=== PATIENT | male | born 1940 | race Caucasian/White ===

== ENCOUNTER 2017-03-13 14:42 | Emergency (ER) | payer OTHER ==
[2017-03-13 14:48] VITALS: BP 135/79; BMI 29.8
--- NOTE | 2017-03-13 15:15 | DR.GENAD ---
HPI - PCP Primary Care Physician: ID ( DR. ANNE) - Complaint/Symptoms Chief Complaint:: PATIENT STATED THAT HE HAS BEEN HAVING A HIGH HEART RATE. HE STATED THAT IT HAS BEEN RUNNING BETWEEN 140-144 BPM. - Nurses notes reviewed Nurses Notes Review: Yes - Source History Provided: Patient - Mode of Arrival Mode of Arrival: Ambulatory - Timing Onset of Chief Complaint: 03/10/17 Came on: Suddenly - Duration Duration: Constant Duration: Days - Severity Severity: Moderate PMH - PMH Past Medical History: Yes Past Medical History: CVA, Hypertension Past Surgical History: Yes Past Surgical History Comment: HERNIA - Family History History of Family Medical Conditions: Yes Family Medical History: Cancer, [place], Coronary Artery Disease - Social History Does patient currently use any type of tobacco product: No Have you used tobacco products in the last 12 months: No Type of Tobacco Use: None Does any household member use tobacco: No Alcohol Use: Occasionally Lives With: Family Lives Where: Home - infectious screening In the last 2 months have you had wt loss of >10#?: NO Have you had fever, night sweats or hemotysis?: No Have you traveled outside the country in the last 6 months?: No Isolation: Standard ROS - Review of Systems Constitutional: No Symptoms Reported Eyes: No Symptoms Reported ENTM: No Symptoms Reported Respiratoy: No Symptoms Reported Cardiovascular: Chest Pain, Palpitations Gastrointestinal/Abdominal: No Symptoms Reported Genitourinary: No Symptoms Reported Neurological: No Symptoms Reported Musculoskeletal: No Symptoms Reported Integumentary: No Symptoms Reported Hematologic/Lymphatic: No Symptoms Reported Endocrine: No Symptoms Reported All Other Systems: Reviewed and Negative PE - Vital Signs Vitals: Temperature 98.2 F Pulse Rate [Left Brachial] 110 Pulse Rate 122 Respiratory Rate 20 Blood Pressure 135/79 O2 Sat by Pulse Oximetry 97 - General Limitations: No Limitations General Appearance: Alert - Head Head Exam: Normal Inspection - Eyes Eye exam: Normal Appearance - ENT ENT Exam: Normal External Ear Exam TM/Canal Exam: Bilateral Normal Nose Exam: Normal Nose Exam Mouth Exam: Normal Inspection Throat Exam: Normal Inspection - Neck Neck Exam: Normal Inspection - Chest Chest Inspection: Symmetric Chest Wall Rise - Respiratory Respiratory Exam: Normal Lung Sounds Bilat Respiratory Exam: Bilateral Clear to Auscultation - Cardiovascular Cardiovascular Exam: Tachycardia, Irregular Rhythm - Abdominal Exam Abdominal Exam: Normal Bowel Sounds, Soft. negative: Tenderness - Extremities Extremities Exam: Normal Inspection - Back Back Exam: Normal Inspection - Neurologic Neurological Exam: Alert, Oriented X3 - Psychiatric Psychiatric Exam: Normal Affect, Normal Mood - Skin Skin Exam: Normal Color MDM - Additional Information Additional Information Obtained From: Family - Differential Diagnosis Differential Diagnosis: PALPITATION, CHEST DISCOMFORT Course - Treatment Treatment: SEE ORDERS. - Education/Counseling Education/Counseling: Patient, Family, Education Educated On: Diagnosis, Needs for Follow Up ROR - Labs Reviewed Laboratory Results Reviewed?: Yes Result Diagrams: 03/13/17 15:45 03/13/17 15:45 Laboratory: WBC 7.4 X10^3/uL (3.6-10.0) 03/13/17 15:45 RBC 4.52 X10^6/uL (4.7-6.0) L 03/13/17 15:45 Hgb 13.4 g/dL (13.5-18.0) L 03/13/17 15:45 Hct 38.2 % (42.0-54.0) L 03/13/17 15:45 MCV 84.7 fL (80.0-100.0) 03/13/17 15:45 MCH 29.7 pg (27.0-34.0) 03/13/17 15:45 MCHC 35.1 g/dL (33.0-35.0) H 03/13/17 15:45 RDW 14.0 % (11.6-16.5) 03/13/17 15:45 Plt Count 242 X10^3/uL (150.0-450.0) 03/13/17 15:45 MPV 8.8 fL (7.4-11.0) 03/13/17 15:45 Neut % 59.4 % (42.0-75.0) 03/13/17 15:45 Lymph % 26.4 % (21.0-51.0) 03/13/17 15:45 [place] % 7.0 % (0.0-13.0) 03/13/17 15:45 Eos % 6.3 % (0.9-2.9) H 03/13/17 15:45 Baso % 0.9 % (0.2-1.0) 03/13/17 15:45 Neut # 4.4 x10^3/uL (2.2-4.8) 03/13/17 15:45 Lymph # 2.0 X10^3/uL (1.3-2.9) 03/13/17 15:45 [place] # 0.5 x10^3/uL (0.3-0.8) 03/13/17 15:45 Eos # 0.5 x10^3/uL (0.0-0.2) H 03/13/17 15:45 Baso # 0.1 X10^3/uL (0.0-0.1) 03/13/17 15:45 Absolute Nucleated RBC 0.1 /100WBC 03/13/17 15:45 Sodium 143 mmol/L (136-145) 03/13/17 15:45 Corrected Sodium 144 mmol/L (136-145) 03/13/17 15:45 Potassium 4.1 mmol/L (3.5-5.1) 03/13/17 15:45 Chloride 108 mmol/L (98-107) H 03/13/17 15:45 Carbon Dioxide 24.0 mmol/L (21-32) 03/13/17 15:45 BUN 21 mg/dL (7-18) H 03/13/17 15:45 Creatinine 1.69 mg/dL (0.70-1.30) H 03/13/17 15:45 Est GFR (MDRD) Af Amer 51 (>60) L 03/13/17 15:45 Est GFR (MDRD) Non-Af 42 (>60) L 03/13/17 15:45 Glucose 136 mg/dL (65-99) H 03/13/17 15:45 Calcium 9.6 mg/dL (8.5-10.1) 03/13/17 15:45 Corrected Calcium TNP 03/13/17 15:45 Total Bilirubin 0.30 mg/dL (0.2-1.0) 03/13/17 15:45 AST 13 Units/L (15-37) L 03/13/17 15:45 ALT 23 Units/L (12-78) 03/13/17 15:45 Alkaline Phosphatase 83 Units/L (46-116) 03/13/17 15:45 Creatine Kinase 97 Units/L (39-308) 03/13/17 15:45 CK-MB (CK-2) 1.2 ng/mL (0-4.0) 03/13/17 15:45 CK/CKMB % Calc 1.2 % (<4) 03/13/17 15:45 Troponin I < 0.02 ng/mL (0-1.5) 03/13/17 15:45 Total Protein 7.1 g/dL (6.4-8.2) 03/13/17 15:45 Albumin 3.6 g/dL (3.4-5.0) 03/13/17 15:45 Globulin 3.5 g/dL (2.5-4.5) 03/13/17 15:45 Albumin/Globulin Ratio 1.0 Ratio (1.1-2.1) L 03/13/17 15:45 - XRAY XRAY Interpreted by: Radiologist XRAY Findings: REPORT DICUS WITH PATIENT. - EKG Rhythm: Afib (WITH RVR. EKG NOTED.) - Diagnosis Discharge Problem: Atrial fibrillation with RVR - Discharge Plan Disposition: AGAINST MEDICAL ADVICE Condition: Stable - Follow ups/Referrals Follow ups/Referrals: [facility]DM[facility] [Primary Care Provider] - 3 days - Instructions Instructions: Atrial Fibrillation, [id number] Additional Instructions: RETURN TO ED IF WORSE. YOU ARE DISCHARGE HOME AGAINST MEDICAL ADVICE YOU WISH TO FOLLOW UP WITH YOU IN AM INSTEAD OF CONTINUING HOSPITAL STAY.
[2017-03-13 15:51] LABS: BASOPHILS # (AUTO) 0.1 X10^3/uL (0.0-0.1); BASOPHILS % (AUTO) 0.9 % (0.2-1.0); EOSINOPHILS # (AUTO) 0.5 x10^3/uL (0.0-0.2); EOSINOPHILS % (AUTO) 6.3 % (0.9-2.9); HEMATOCRIT 38.2 % (42.0-54.0); HEMOGLOBIN 13.4 g/dL (13.5-18.0); LYMPHOCYTES % (AUTO) 26.4 % (21.0-51.0); MEAN CORPUSCULAR HEMOGLOBIN 29.7 pg (27.0-34.0); MEAN CORPUSCULAR HGB CONC 35.1 g/dL (33.0-35.0); MEAN CORPUSCULAR VOLUME 84.7 fL (80.0-100.0); MEAN PLATELET VOLUME 8.8 fL (7.4-11.0); MONOCYTES # (AUTO) 0.5 x10^3/uL (0.3-0.8); NEUTROPHILS # (AUTO) 4.4 x10^3/uL (2.2-4.8); NEUTROPHILS % (AUTO) 59.4 % (42.0-75.0); PLATELET COUNT 242 X10^3/uL (150.0-450.0); RED BLOOD COUNT 4.52 X10^6/uL (4.7-6.0); WHITE BLOOD COUNT 7.4 X10^3/uL (3.6-10.0)
--- NOTE | 2017-03-13 15:56 | RAD ---
HISTORY: 76-year-old male with tachycardia. Study: Frontal view of the chest. Comparison: None. Findings: The trachea is midline. The cardiac silhouette is enlarged with prominent interstitium and perihilar lung markings and low lung volumes. The lungs are clear without focal consolidation, effusion or pn eumothorax. Soft tissues are unremarkable. Osseous structures are unremarkable. IMPRESSION: 1. Cardiomegaly with low lung volumes, prominent interstitium and perihilar lung markings. Reported By:
[2017-03-13 16:06] LABS: BLOOD UREA NITROGEN 21 mg/dL (7-18); CALCIUM 9.6 mg/dL (8.5-10.1); CHLORIDE 108 mmol/L (98-107); COR NA(FOR HYPERGLY) 144 mmol/L (136-145); CREATININE 1.69 mg/dL (0.70-1.30); SODIUM 143 mmol/L (136-145); TROPONIN I < 0.02 ng/mL (0-1.5); eGFR BLACK RACES 51 (>60); eGFR NON BLACK RACES 42 (>60)
[2017-03-13 16:10] LABS: ALANINE AMINOTRANSFERASE 23 Units/L (12-78); ALBUMIN 3.6 g/dL (3.4-5.0); ALKALINE PHOSPHATASE 83 Units/L (46-116); ASPARTATE AMINO TRANSFERASE 13 Units/L (15-37); CKMB % 1.2 % (<4); CREATINE KINASE 97 Units/L (39-308); CREATINE KINASE MB 1.2 ng/mL (0-4.0); TOTAL PROTEIN 7.1 g/dL (6.4-8.2)
== END 2017-03-13 17:17 | disposition left against medical advice (07) ==
LOC: ER 14:54
DX: I48.0 Paroxysmal atrial fibrillation (principal); I51.7 Cardiomegaly
CPT/HCPCS: 36415; 71045; 80053; 82550; 82553; 84484; 85025; 93005; 93010; 99283; 99285